=== PATIENT | female | born 2000 | race Caucasian/White ===

== ENCOUNTER 2018-02-14 11:58 | Emergency (ER) | payer MEDICAID ==
[~2018-02-14] VITALS: Ht 165.1 cm; Wt 89.8 kg
[2018-02-14 12:03] VITALS: BP_SYST 145
--- NOTE | 2018-02-14 12:07 | NUR ---
Pt placed in bed 6
--- NOTE | 2018-02-14 12:13 | NUR ---
Patient for polyuria and dysuria for the past 2 days. Patient reports to me that she had chlamydia 2 months ago. Pain is mild with no alleviating factors. Otherwise, she denies any fever, hematuria, vaginal discharge, vaginal bleeding, foul vaginal odor, or any other complaints.
--- NOTE | 2018-02-14 12:20 | NUR ---
ER at bedside examining patient.
[2018-02-14] MEDS ORDERED: AZITHROMYCIN 250 MG TABLET PO ONE (12:30)
[2018-02-14] MEDS ORDERED: cefTRIAXone 250 MG VIAL IM ONE (12:30)
[2018-02-14 12:32] LABS: BILIRUBIN,URINE NEGATIVE (NEGATIVE); CLARITY/URINE SL HAZY (CLEAR); COLOR,URINE YELLOW (YELLOW); GLUCOSE,URINE NEGATIVE (NEGATIVE); KETONES,URINE NEGATIVE (NEGATIVE); LEUKOCYTE ESTERASE ,URINE TRACE (NEGATIVE); NITRITE, URINE NEGATIVE (NEGATIVE); PROTEIN URINE NEGATIVE (NEGATIVE); UROBILINOGEN,URINE 0.2 (0.2-1.0)
[2018-02-14 12:33] LABS: BLOOD, URINE TRACE (NEGATIVE)
[2018-02-14 13:13] LABS: BACTERIA,URINE FEW /HPF (None Seen); MUCUS,URINE None Seen /LPF (None Seen); RBC,URINE 0-3 /HPF (0-3)
[2018-02-14 13:24] VITALS: BP_SYST 145
--- NOTE | 2018-02-14 13:29 | NUR ---
Patient given written and verbal discharge instructions and verbalizes understanding. ER MD discussed with patient the results and treatment provided. Patient in stable condition. ID arm band removed. Rx of pyridium given. Patient educated on pain management and to follow up with PMD. Pain Scale . Opportunity for questions provided and answered. Medication side effect fact sheet provided.
[2018-02-16 00:12] LABS: CHLAMYDIA TRACHOMATIS NAA Negative (Negative); NEISSERIA GONORRHOEAE NAA Negative (Negative)
== END 2018-02-14 13:29 | disposition home or self-care (01) ==
LOC: SED 11:58
DX: Z11.3 Encounter for screening for infections with a predominantly sexual mode of transmission (principal)
CPT/HCPCS: 81000; 81025; 87086; 87491; 87591; 96372; 99283; J0696; Q0144

== ENCOUNTER 2022-07-20 17:10 | Emergency (ER) | payer MEDICAID ==
[~2022-07-20] VITALS: Ht 165.1 cm; Wt 106.6 kg
[2022-07-20 17:15] VITALS: BP_SYST 124
--- NOTE | 2022-07-20 17:15 | NUR ---
Patient triaged and placed in waiting room. VSS and patient appears in no acute distress at this time. Accompanied by BOYFRIEND, awaiting available bed, and MD notified of need for MSE.
--- NOTE | 2022-07-20 17:30 | NUR ---
PT STATES SHE WAS WALKING ON PORCH WHEN SHE TWISTED HER RIGHT ANKLE. STATES SHE IS UNABLE TO BEAR WEIGHT, SLIGHT SWELLING NOTED.
--- NOTE | 2022-07-20 18:10 | NUR ---
TAKEN TO RADIOLOGY VIA WHEELCHAIR FOR TESTING
--- NOTE | 2022-07-20 19:45 | NUR ---
Patient to ER bed CH2 to gown for evaluation. Side rails up. Report given to ANU RASCON.
[2022-07-20] MEDS ORDERED: NAPR-690 PO (19:47)
--- NOTE | 2022-07-20 19:50 | NUR ---
Patient given written and verbal discharge instructions and verbalizes understanding. ER MD discussed with patient the results and treatment provided. Patient in stable condition. ID arm band removed. Rx of NAPROXEN given. Patient educated on ANKLE SPRAIN, AND USE OF CRUTCHES management and to follow up with PMD. Pain Scale 0. Opportunity for questions provided and answered. Medication side effect fact sheet provided.
[2022-07-20 20:32] VITALS: BP_SYST 124
== END 2022-07-20 20:32 | disposition home or self-care (01) ==
LOC: SED 17:10
DX: S93.401A Sprain of unspecified ligament of right ankle, initial encounter (principal); Z79.899 Other long term (current) drug therapy; X58.XXXA Exposure to other specified factors, initial encounter; Y93.89 Activity, other specified; Y92.89 Other specified places as the place of occurrence of the external cause; Y99.8 Other external cause status
CPT/HCPCS: 99283